=== PATIENT | female | born 1965 | race Caucasian/White ===

== ENCOUNTER 2017-05-10 12:32 | Emergency (ER) | payer BC, OTHER ==
[2017-05-10 12:42] VITALS: BP 121/77
[2017-05-10] MEDS ORDERED: Ondansetron 4 MG/2 ML SDV IVPUSH ONE (13:20)
[2017-05-10] MEDS ORDERED: Sodium Chloride 0.9% 1,000 ML IV ONE (13:20)
--- NOTE | 2017-05-10 13:46 | EDM.PDOC ---
ED HPI GENERAL MEDICAL PROBLEM - General Chief Complaint: Gastrointestinal Problem Stated Complaint: VOMITTING Time Seen by Provider: 05/10/17 13:19 Source of Information: Reports: Patient History Limitations: Reports: No Limitations - History of Present Illness INITIAL COMMENTS - FREE TEXT/NARRATIVE: HISTORY AND PHYSICAL: History of present illness: Patient is a 52-year-old female who presents to the emergency room with complaints of nausea, vomiting, runny aches, cough, sinus pressure and fever. She states that the symptoms and go over the past week. Yesterday was seen at the clinic for her nausea and vomiting and was prescribed Zofran. She states today that the Zofran was not helping and was still having the nausea and vomiting. Denies any chest pain, shortness of breath, abdominal pain, diarrhea or constipation. Denies any dysuria or vaginal discharge/bleeding. Has not received the [id number] influenza vaccine. Review of systems: As per history of present illness and below otherwise all systems reviewed and negative. Past medical history: As per history of present illness and as reviewed below otherwise noncontributory. Surgical history: As per history of present illness and as reviewed below otherwise noncontributory. Social history: No reported history of drug or alcohol abuse. Family history: As per history of present illness and as reviewed below otherwise noncontributory. Physical exam: General: Well-developed and well-nourished 2-year-old female. Alert and oriented. Nontoxic appearing and in no acute distress. HEENT: Atraumatic, normocephalic, pupils reactive, negative for conjunctival pallor or scleral icterus, mucous membranes moist, throat clear, neck supple, nontender, trachea midline. Lungs: Clear to auscultation, breath sounds equal bilaterally, chest nontender. Heart: S1S2, regular rate and rhythm Abdomen: Soft, nondistended, nontender. Negative for masses or hepatosplenomegaly. Negative for costovertebral tenderness. Pelvis: Stable nontender. Genitourinary: Deferred. Rectal: Deferred. Extremities: Atraumatic, moves all extremities per herself without difficulty or deficits. Neurovascular unremarkable. Neuro: Awake, alert, oriented. Cranial nerves II through XII unremarkable. Cerebellum unremarkable. Motor and sensory unremarkable throughout. Exam nonfocal. CBC, CMP, lipase, UA are normal. She does have a slightly elevated amylase, just suspect is from her nausea and vomiting. She received the IV fluids and states feels somewhat better. Still complaining of "pressure in her forehead". We'll treat with Augmentin as a sinusitis. Instructed the patient to follow up with her primary caregiver in the next couple days. She has Zofran at home which she states she will use if needed for nausea. Prior to discharge she asked for something for nausea, stating that she felt improved but needed "more". is at bedside and will try patient home. 2.5 of Phenergan IM will be given. Discharged to home. Diagnostics: CBC, CMP, amylase, lipase, UA, chest x-ray Therapeutics: IV fluid, Zofran, phenergan IM Impression: Nausea and vomiting Sinusitis Plan: 1. Your labs and x-ray were normal today. Will treat your sinus infection with Augmentin, 1 tab twice daily 10 days. Into need to take Tylenol and/or ibuprofen as needed for body aches. 2. Use the Zofran that you have at home for nausea management. Drink plenty of fluids to prevent dehydration. 3. Follow-up with her primary caregiver in the next 1-2 days. Return to the ED as needed and as discussed. Definitive disposition and diagnosis as appropriate pending reevaluation and review of above. Duration: Day(s): Location: Reports: Head, Abdomen Associated Symptoms: Reports: Cough, Fever/Chills, Headaches, Nausea/Vomiting, Other (Fatigue). Denies: Confusion, Chest Pain, cough w sputum, Diaphoresis, Loss of Appetite, Malaise, Rash, Seizure, Shortness of Breath, Syncope, Weakness Treatments ED TECH: Reports: Acetaminophen, Other (see below) (Zofran) headache Pain Score (Numeric/FACES): 3 - Related Data Allergies Allergy/AdvReac Type Severity Reaction Status Date / Time No Known Allergies Allergy Verified 10/07/15 14:20 Home Meds: Home Meds Calcium Carbonate/Vitamin D3 [Calcium 600 + Vit D 200] 1 tab PO TID 10/07/15 [ History] Cranberry 1 tab PO TID 10/07/15 [History] Vitamin B Complex 1 tab PO ASDIRECTED 10/07/15 [History] Amoxicillin/Potassium Clav [Augmentin 875-125 Tablet] 1 each PO BID 10 Days #20 tablet 05/10/17 [Rx] Azithromycin [IJD: Azithromycin] 250 mg PO BID 05/10/17 [History] Ondansetron HCl [Zofran] 4 mg PO DAILY 05/10/17 [History] Past Medical History HEENT History: Reports: None Cardiovascular History: Reports: None Respiratory History: Reports: None Gastrointestinal History: Reports: None Musculoskeletal History: Reports: None Neurological History: Reports: Seizure Other Neuro History: had seizure x1 after falling off a horse in Psychiatric History: Reports: None Endocrine/Metabolic History: Reports: None Hematologic History: Reports: None Immunologic History: Reports: None Oncologic (Cancer) History: Reports: None Dermatologic History: Reports: None - Infectious Disease History Infectious Disease History: Reports: Chicken Pox - Past Surgical History Head Surgeries/Procedures: Reports: None Other Female Surgeries/Procedures: hx bladder surgery (sling) Social & Family History - Family History Family Medical History: Noncontributory - Tobacco Use Smoking Status *Q: Never Smoker - Caffeine Use Caffeine Use: Reports: None - Recreational Drug Use Recreational Drug Use: No Drug Use in Last 12 Months: No ED ROS GENERAL - Review of Systems Review Of Systems: ROS reveals no pertinent complaints other than HPI. ED EXAM, GI/ABD - Physical Exam Exam: See Below (See dictation) Course - Vital Signs Last Recorded V/S: Last Vital Signs Temp 97.6 F 05/10/17 12:39 Pulse 94 05/10/17 12:39 Resp 18 05/10/17 12:39 BP 121/77 05/10/17 12:39 Pulse Ox 97 05/10/17 12:39 - Orders/Labs/Meds Orders: Active Orders 24 hr Category Date Time Status Promethazine [Phenergan] Med 05/10/17 15:08 Once 12.5 mg IM ONETIME ONE Labs: Laboratory Tests 05/10/17 05/10/17 05/10/17 Range/Units 13:53 13:53 14:38 WBC 7.04 (4.0-11.0) K/uL RBC 4.42 (4.30-5.90) M/uL Hgb 13.0 (12.0-16.0) g/dL Hct 36.9 (36.0-46.0) % MCV 83.5 (80.0-98.0) fL MCH 29.4 (27.0-32.0) pg MCHC 35.2 (31.0-37.0) g/dL RDW Std Deviation 37.1 (28.0-62.0) fl RDW Coeff of Oral 12 (11.0-15.0) % Plt Count 249 (150-400) K/uL MPV 8.80 (7.40-12.00) fL Neut % (Auto) 82.1 H (48.0-80.0) % Lymph % (Auto) 14.2 L (16.0-40.0) % [place] % (Auto) 3.6 (0.0-15.0) % Eos % (Auto) 0.0 (0.0-7.0) % Baso % (Auto) 0.1 (0.0-1.5) % Neut # (Auto) 5.8 H (1.4-5.7) K/uL Lymph # (Auto) 1.0 (0.6-2.4) K/uL [place] # (Auto) 0.3 (0.0-0.8) K/uL Eos # (Auto) 0.0 (0.0-0.7) K/uL Baso # (Auto) 0.0 (0.0-0.1) K/uL Nucleated RBC % 0.0 /100WBC Nucleated RBCs # 0 K/uL Sodium 130 L (136-146) mmol/L Potassium 3.9 (3.5-5.1) mmol/L Chloride 95 L (98-110) mmol/L Carbon Dioxide 23 (21-31) mmol/L BUN 11 (6.0-23.0) mg/dL Creatinine 0.7 (0.6-1.5) mg/dL Est Cr Clr Drug Dosing 67.53 mL/min Estimated GFR (MDRD) > 60.0 ml/min Glucose 116 H (60-110) mg/dL Calcium 9.4 (8.8-10.8) mg/dL Total Bilirubin 0.6 (0.1-1.5) mg/dL AST 26 (5-40) IU/L ALT 27 (8-54) IU/L Alkaline Phosphatase 76 (40-150) Total Protein 8.0 (6.0-8.0) g/dL Albumin 4.5 (3.5-5.0) g/dL Globulin 3.5 (2.0-3.5) g/dL Albumin/Globulin Ratio 1.3 (1.3-2.8) Amylase 123 H (10-90) U/L Lipase 57 (7-80) U/L Urine Color YELLOW Urine Appearance CLEAR Urine pH 6.0 (5.0-8.0) Ur Specific [place] 1.025 (1.001-1.035) Urine Protein NEGATIVE (NEGATIVE) mg/dL Urine Glucose (UA) NEGATIVE (NEGATIVE) mg/dL Urine Ketones >=80 (NEGATIVE) mg/dL Urine Occult Blood NEGATIVE (NEGATIVE) Urine Nitrite NEGATIVE (NEGATIVE) Urine Bilirubin NEGATIVE (NEGATIVE) Urine Urobilinogen 0.2 (<2.0) EU/dL Ur Leukocyte Esterase NEGATIVE (NEGATIVE) Urine RBC 0-1 (0-2/HPF) Urine WBC 0-1 (0-5/HPF) Ur Epithelial Cells RARE (NONE-FEW) Urine Bacteria RARE (NEGATIVE) Meds: Medications Discontinued Medications Generic Name Dose Route Start Last Admin Trade Name Freq PRN Reason Stop Dose Admin Sodium Chloride 1,000 mls @ 999 mls/hr 05/10/17 13:20 05/10/17 13:54 Normal Saline IV 05/10/17 14:20 999 mls/hr STAT ONE Administration Ondansetron HCl 4 mg 05/10/17 13:20 05/10/17 13:54 Zofran IVPUSH 05/10/17 13:21 4 mg ONETIME ONE Administration Departure - Departure Time of Disposition: 15:06 Disposition: Home, Self-Care 01 Clinical Impression: Sinusitis Qualifiers: Sinusitis location: maxillary Chronicity: acute Recurrence: non-recurrent Qualified Code(s): J01.00 - Acute maxillary sinusitis, unspecified Nausea and vomiting Qualifiers: Vomiting type: unspecified Vomiting Intractability: unspecified Qualified Code( s): R11.2 - Nausea with vomiting, unspecified - Discharge Information Prescriptions: Amoxicillin/Potassium Clav [Augmentin 875-125 Tablet] 1 each PO BID 10 Days #20 tablet Referrals: PCP,None [Primary Care Provider] - Forms: ED Department Discharge Additional Instructions: My general discharge The following information is given to patients seen in the emergency department who are being discharged to home. This information is to outline your options for follow-up care. We provide all patients seen in our emergency department with a follow-up referral. The need for follow-up, as well as the timing and circumstances, are variable depending upon the specifics of your emergency department visit. If you don't have a primary care physician on staff, we will provide you with a referral. We always advise you to contact your personal physician following an emergency department visit to inform them of the circumstance of the visit and for follow-up with them and/or the need for any referrals to a consulting specialist. The emergency department will also refer you to a specialist when appropriate. This referral assures that you have the opportunity for follow-up care with a specialist. All of these measure are taken in an effort to provide you with optimal care, which includes your follow-up. Under all circumstances we always encourage you to contact your private physician who remains a resource for coordinating your care. When calling for follow-up care, please make the office aware that this follow-up is from your recent emergency room visit. If for any reason you are refused follow-up, please contact the [facility] Emergency Department at and asked to speak to the emergency department charge nurse. [facility] [address] [place] [id number] 1. Your labs and x-ray were normal today. Will treat your sinus infection with Augmentin, 1 tab twice daily 10 days. Into need to take Tylenol and/or ibuprofen as needed for body aches. 2. Use the Zofran that you have at home for nausea management. Drink plenty of fluids to prevent dehydration. 3. Follow-up with her primary caregiver in the next 1-2 days. Return to the ED as needed and as discussed. - My Orders Last 24 Hours: My Active Orders 05/10/17 15:08 Promethazine [Phenergan] 12.5 mg IM ONETIME ONE - Assessment/Plan Last 24 Hours: My Active Orders 05/10/17 15:08 Promethazine [Phenergan] 12.5 mg IM ONETIME ONE
[2017-05-10 14:21] LABS: CHLORIDE,CL 95 mmol/L (98-110); SODIUM,NA 130 mmol/L (136-146)
--- NOTE | 2017-05-10 14:29 | CR ---
EXAMINATION: Two-view chest (PA and Lateral views). HISTORY: Shortness of breath. FINDINGS: The trachea is midline. The cardiomediastinal silhouette is within normal limits. No pulmonary infilt rates, effusions or pneumothorax. Osseous structures appear unremarkable. IMPRESSION: No acute cardiopulmonary process.
[2017-05-10] MEDS ORDERED: Promethazine 25 MG/ML SDV IM ONE (15:08)
== END 2017-05-10 15:31 | disposition home or self-care (01) ==
LOC: MW.ED 12:32
DX: J01.00 Acute maxillary sinusitis, unspecified (principal); R11.2 Nausea with vomiting, unspecified; Z79.899 Other long term (current) drug therapy
CPT/HCPCS: 36415; 71046; 80053; 81001; 82150; 83690; 85025; 87804; 96361; 96372; 96374; 99284; J2405; J2550; J7040

== ENCOUNTER 2019-10-13 10:59 | Emergency (ER) | payer BC, OTHER ==
[2019-10-13] MEDS ORDERED: Acetaminophen/HYDROcodone 325-5 MG Tab PO ONE (11:39)
[2019-10-13] MEDS ORDERED: Diphtheria,Pertussis(Acell),Tetanus Vaccine 0.5 ML Syringe IM ONE (11:39)
[2019-10-13] MEDS ORDERED: Bacitracin Oint 1 GM U/D Packet TOP ONE (11:39)
[2019-10-13] MEDS ORDERED: Ondansetron 4 MG Tab.DIS PO ONE (11:39)
--- NOTE | 2019-10-13 11:44 | EDM.PDOC ---
ED HPI GENERAL MEDICAL PROBLEM - General Chief Complaint: Lower Extremity Injury/Pain Stated Complaint: BUCKED OFF HORSE, HURT FACE AND ANKLE Time Seen by Provider: 10/13/19 11:11 Source of Information: Reports: Patient History Limitations: Reports: No Limitations - History of Present Illness INITIAL COMMENTS - FREE TEXT/NARRATIVE: HISTORY AND PHYSICAL: History of present illness: Patient is a 54-year-old female who presents to the emergency room with complaints of left ankle pain and facial abrasions. Patient was riding a horse when the horse reared up and bucked her off. When she landed it was mostly on her left ankle and then she did hit "something" leaving some abrasions to her eyebrow and chin. She has not been able to bear weight to the left lower extremity. She denies any loss of consciousness, change in vision, dizziness or headache. Offers no other extremity pain. Patient denies any fever, chills, chest pain, back pain, shortness of breath or cough. Denies any abdominal pain, nausea, vomiting, diarrhea, constipation or dysuria. Has not noted any blood in urine or stool. Patient has been eating and drinking appropriately. Review of systems: As per history of present illness and below otherwise all systems reviewed and negative. Past medical history: As per history of present illness and as reviewed below otherwise noncontributory. Surgical history: As per history of present illness and as reviewed below otherwise noncontributory. Social history: See social history for further information Family history: As per history of present illness and as reviewed below otherwise noncontributory. Physical exam: General: Well-developed and well-nourished 54-year-old female. Alert and oriented. Nontoxic-appearing and in no acute distress. HEENT: Abrasion noted along the right eyebrow, bridge of nose and chin. Facial bones and scalp are nontender, no crepitus or obvious scalp injury noted. Normocephalic, pupils equal and reactive bilaterally, negative for conjunctival pallor or scleral icterus, mucous membranes moist, teeth intact, no oral lacerations, TMs normal bilaterally, throat clear, neck supple, nontender, trachea midline. No drooling or trismus noted. No meningeal signs. No hot potato voice noted. Lungs: Clear to auscultation, breath sounds equal bilaterally, chest nontender. Heart: S1S2, regular rate and rhythm without overt murmur Abdomen: Soft, nondistended, nontender. Negative for masses or hepatosplenomegaly. Negative for costovertebral tenderness. Pelvis: Stable nontender. Skin: Abrasions noted along the right eyebrow, bridge of nose and chin. Bruising and soft tissue swelling noted to the left medial ankle. Otherwise skin is intact, warm, dry. No lesions or rashes noted. Extremities: Head to toe physical assessment was done, main place of pain is her left ankle. She does have soft tissue swelling and bruising to the left medial ankle with malleolus tenderness. This injury does appear to have Achilles tendon involvement. She moves all other extremities per self without difficulty or deficits. Neurovascular unremarkable. Neuro: Awake, alert, oriented. Cranial nerves II through XII unremarkable. Cerebellum unremarkable. Motor and sensory unremarkable throughout. Exam nonfocal. Notes: The patient declines wanting a head CT, she denies any concerns of skull fracture or bleeding. Patient's cowboy boot was cut off, per patient request. See physical exam for lower extremity findings. We will give her oral Louisa and Zofran to prevent any nausea associated with narcotics. X-ray pending. Patient was reevaluated for her abrasions on her face/head injury. She states she continues to have no concerns and declines the head CT. I am agreeable as she has been alert, oriented and acting appropriately. Vital signs remained stable. X-ray shows a displaced posterior calcaneal fracture with mild comminution.displacement most likely caused by the Achilles tendon. Soft tissue swelling noted. Dr. Schneider, podiatry on-call at [facility], was consulted. He states that the patient can follow-up with him next week, to call the office Monday to set up a follow-up appointment. This information was shared with the patient. A heavily padded heel half-cast fiberglass splint applied to the left lower extremity. Patient fitted for crutches. Will prescribe Louisa and Zofran. Medication, podiatry follow-up and supportive care measures were reviewed and discussed. Voices understanding and is agreeable to plan of care. Denies any further questions or concerns at this time. Diagnostics: Left ankle x-ray Therapeutics: Louisa, Zofran, bacitracin, crutches, fiberglass splint Prescription: Louisa, Zofran Impression: Calcaneal fracture, left Achilles tendon injury, left Plan: 1. Rest, ice, elevate the affected extremity as able. Keep the splint on and use the crutches as directed. 2. Please review and follow the head injury instructions that we discussed in her printed in your discharge packet.Limit any physical activities and follow cognitive rest (decrease screen time, reading, tv, etc..) over the next 24 hours pending resolution of symptoms. 3. Tylenol and/or ibuprofen as needed for pain management. 4. Follow-up with podiatry. Dr Schneider, podiatry at [facility], is aware of your case. He would like you to call his office on Monday morning to set up a follow-up appointment. . Return to the ED as needed and as discussed. Definitive disposition and diagnosis as appropriate pending reevaluation and review of above. left ankle Pain Score (Numeric/FACES): 3 - Related Data Allergies Allergy/AdvReac Type Severity Reaction Status Date / Time No Known Allergies Allergy Verified 10/13/19 11:31 Home Meds: Home Meds Calcium Carbonate/Vitamin D3 [Calcium 600 + Vit D 200] 1 tab PO TID 10/07/15 [History] Cranberry 1 tab PO TID 10/07/15 [History] Vitamin B Complex 1 tab PO ASDIRECTED 10/07/15 [History] Past Medical History HEENT History: Reports: None Cardiovascular History: Reports: None Respiratory History: Reports: None Gastrointestinal History: Reports: None Musculoskeletal History: Reports: None Neurological History: Reports: Seizure Other Neuro History: had seizure x1 after falling off a horse in Psychiatric History: Reports: None Endocrine/Metabolic History: Reports: None Hematologic History: Reports: None Immunologic History: Reports: None Oncologic (Cancer) History: Reports: None Dermatologic History: Reports: None - Infectious Disease History Infectious Disease History: Reports: Measles - Past Surgical History Head Surgeries/Procedures: Reports: None Other Female Surgeries/Procedures: hx bladder surgery (sling) Social & Family History - Family History Family Medical History: Noncontributory - Tobacco Use Smoking Status *Q: Never Smoker - Caffeine Use Caffeine Use: Reports: Coffee - Recreational Drug Use Recreational Drug Use: No Review of Systems - Review of Systems Review Of Systems: Comprehensive ROS is negative, except as noted in HPI. ED EXAM, GENERAL - Physical Exam Exam: See Below (See dictation) Course - Vital Signs Last Recorded V/S: Last Vital Signs Temp 96.8 F L 10/13/19 11:29 Pulse 104 H 10/13/19 11:29 Resp 18 10/13/19 11:29 BP 154/94 H 10/13/19 11:29 Pulse Ox 97 10/13/19 11:29 - Orders/Labs/Meds Orders: Active Orders 24 hr Category Date Time Status Vaccines to be Administered [RC] PER UNIT ROUTINE Care 10/13/19 11:40 Active Meds: Medications Discontinued Medications Generic Name Dose Route Start Last Admin Trade Name Freq PRN Reason Stop Dose Admin Hydrocodone Bitart/Acetaminophen 1 tab 10/13/19 11:39 10/13/19 11:57 Louisa 325-5 Mg PO 10/13/19 11:40 1 tab ONETIME ONE Administration Bacitracin 1 dose 10/13/19 11:39 10/13/19 11:56 Bacitracin Oint 1 Gm TOP 10/13/19 11:40 1 dose ONETIME ONE Administration Diphtheria/Tetanus/Acell Pertussis 0.5 ml 10/13/19 11:39 10/13/19 12:10 Adacel IM 10/13/19 11:40 0.5 ml .ONCE ONE Administration Ondansetron HCl 4 mg 10/13/19 11:39 10/13/19 12:01 Zofran Odt PO 10/13/19 11:40 Not Given ONETIME ONE Departure - Departure Time of Disposition: 12:52 Disposition: Home, Self-Care 01 Clinical Impression: Calcaneal fracture, Injury of left Achilles tendon - Discharge Information Instructions: Calcaneal Fracture Repair Surgery Referrals: PCP,None [Primary Care Provider] - Forms: ED Department Discharge Additional Instructions: The following information is given to patients seen in the emergency department who are being discharged to home. This information is to outline your options for follow-up care. We provide all patients seen in our emergency department with a follow-up referral. The need for follow-up, as well as the timing and circumstances, are variable depending upon the specifics of your emergency department visit. If you don't have a primary care physician on staff, we will provide you with a referral. We always advise you to contact your personal physician following an emergency department visit to inform them of the circumstance of the visit and for follow-up with them and/or the need for any referrals to a consulting specialist. The emergency department will also refer you to a specialist when appropriate. This referral assures that you have the opportunity for follow-up care with a specialist. All of these measure are taken in an effort to provide you with optimal care, which includes your follow-up. Under all circumstances we always encourage you to contact your private physician who remains a resource for coordinating your care. When calling for follow-up care, please make the office aware that this follow-up is from your recent emergency room visit. If for any reason you are refused follow-up, please contact the [facility] Emergency Department at and asked to speak to the emergency department charge nurse. [facility] [address] [place] [id number] [place] [address] 1. Rest, ice, elevate the affected extremity as able. Keep the splint on and use the crutches as directed. 2. Please review and follow the head injury instructions that we discussed in her printed in your discharge packet.Limit any physical activities and follow cognitive rest (decrease screen time, reading, tv, etc..) over the next 24 hours pending resolution of symptoms. 3. Tylenol and/or ibuprofen as needed for pain management. 4. Follow-up with podiatry. Dr Schneider, podiatry at [facility], is aware of your case. He would like you to call his office on Monday morning to set up a follow-up appointment. . 5. Return to the ED as needed and as discussed. Sepsis Event Note (ED) - Evaluation Sepsis Screening Result: No Definite Risk - Focused Exam Vital Signs: Vital Signs Temp Pulse Resp BP Pulse Ox 10/13/19 11:29 96.8 F L 104 H 18 154/94 H 97 - My Orders Last 24 Hours: My Active Orders 10/13/19 11:40 Vaccines to be Administered [RC] PER UNIT ROUTINE - Assessment/Plan Last 24 Hours: My Active Orders 10/13/19 11:40 Vaccines to be Administered [RC] PER UNIT ROUTINE
--- NOTE | 2019-10-13 12:26 | CR ---
Left ankle: 3 views left ankle were obtained. Comparison: No previous study. Comminuted fracture is identified involving the posterior calcaneus with superior displacement. Displacement most likely caused by the Achilles tendon. Ankle mortise is symmetric. No additional fracture or other bony abnormality is appreciated. Soft tissue swelling is noted. Impression: 1. Displaced posterior calcaneal fracture with mild comminution. Displacement most likely caused by the Achilles tendon. 2. No additional bony abnormality is seen. Diagnostic code #5 This report was dictated in MDT
[2019-10-13 13:36] VITALS: BP 128/80; PULSE 105
== END 2019-10-13 13:28 | disposition home or self-care (01) ==
LOC: MW.ED 10:59
DX: S92.002A Unspecified fracture of left calcaneus, initial encounter for closed fracture (principal); S86.002A Unspecified injury of left Achilles tendon, initial encounter; S00.31XA Abrasion of nose, initial encounter; S00.81XA Abrasion of other part of head, initial encounter; S00.211A Abrasion of right eyelid and periocular area, initial encounter; Z23 Encounter for immunization; X50.9XXA Other and unspecified overexertion or strenuous movements or postures, initial encounter
CPT/HCPCS: 29515; 73610; 90471; 90715; 99283; A9270